=== PATIENT | female | born 1980 | race Caucasian/White ===

== ENCOUNTER → 2017-02-07 | Day surgery (SDC) | payer OTHER ==
[~2017-02-07] VITALS: Ht 170.2 cm; Wt 143.5 kg
[~2017-02-07] MED LIST: ACETAMINOPHEN325 MG PO; ASPIRIN325 M1 PO; GLUCOTROL10 MG PO; HYDROCODONE-APA1 TAB PO; JANUMET XR 1001 EACH PO; LIPITOR20 MG PO; LOPRESSOR25 MG PO; NITROQUIK SL0.4 MG SL; SYNTHROID125 MCG PO
[2017-02-07 12:48] LABS: CREATININE 0.6 mg/dL (0.5-1.0); POTASSIUM 4.1 mmol/L (3.5-5.1)
== END | disposition home or self-care (01) ==
LOC: FAS 11:15
PROVIDERS: Anesthesiology
DX: G56.02 Carpal tunnel syndrome, left upper limb (principal); I10 Essential (primary) hypertension; J45.909 Unspecified asthma, uncomplicated; E03.9 Hypothyroidism, unspecified; E78.00 Pure hypercholesterolemia, unspecified; E11.9 Type 2 diabetes mellitus without complications; F32.9 Major depressive disorder, single episode, unspecified; F41.9 Anxiety disorder, unspecified; F43.10 Post-traumatic stress disorder, unspecified; F17.210 Nicotine dependence, cigarettes, uncomplicated; G47.30 Sleep apnea, unspecified; K21.9 Gastro-esophageal reflux disease without esophagitis; M79.7 Fibromyalgia; Z87.442 Personal history of urinary calculi; Z90.710 Acquired absence of both cervix and uterus; Z90.89 Acquired absence of other organs; Z90.81 Acquired absence of spleen; Z88.1 Allergy status to other antibiotic agents; Z91.09 Other allergy status, other than to drugs and biological substances; Z79.891 Long term (current) use of opiate analgesic; Z79.899 Other long term (current) drug therapy; Z98.890 Other specified postprocedural states
CPT/HCPCS: 36415; 80048; 84703; J1100; J1170; J2405; J2704; J3010

== ENCOUNTER 2021-03-26 07:46 | Emergency (ER) | payer OTHER ==
[~2021-03-26 07:46] MED LIST changes: +LISINOPRIL40 MG PO; +METOPROLOL TART50 M1 PO; +PROAIR HFA8.5 GM INH; +PROMETHAZINE-D118 ML PO; +PROTONIX 40MG T40 MG PO; +SAVELLA100 MG PO; +SINGULAIR10 MG PO; +VICTOZA SC; +VITAMIN B122500 MCG PO; +ZYRTEC10 MG PO
[2021-03-26 08:36] LABS: BASOPHIL 0.7 % (0-2); EOSINOPHIL 3.9 % (0-5); MCH 31.3 pg (25.0-31.0); MCHC 34.1 g/dL (32.0-36.0); MCV 91.7 fL (78.0-100.0); MONOCYTE 10.5 % (0-12); MPV 11.1 fL (6.0-9.5); NEUTROPHIL 47.6 % (41-80); NRBC 0; PLT 535 K/uL (150-400); RDW 13.4 % (11.5-14.0); WBC 16.7 K/uL (4.0-10.5)
[2021-03-26 08:47] LABS: INR 0.94 (0.9-1.2); PROTHROMBIN TIME 11.9 SECONDS (11.4-13.6); PTT 31.4 SECONDS (22.2-34.7)
[2021-03-26 08:52] LABS: ALBUMIN 3.7 g/dL (3.4-5.0); BILIRUBIN - TOTAL 0.5 mg/dL (0.2-1.0); BUN/CREAT RATIO (CALC) 12.9 RATIO; CREATININE 0.7 mg/dL (0.51-0.95); POTASSIUM 5.3 mmol/L (3.5-5.1); TOTAL PROTEIN 6.7 g/dL (6.4-8.2)
[2021-03-26 09:00] LABS: CKMB 1.1 ng/mL (0.0-3.6)
== END 2021-03-26 08:59 | disposition other institution (70) ==
LOC: FER 07:46
PROVIDERS: Emergency Medicine
DX: I21.19 ST elevation (STEMI) myocardial infarction involving other coronary artery of inferior wall (principal); E11.9 Type 2 diabetes mellitus without complications; F17.210 Nicotine dependence, cigarettes, uncomplicated; Z88.0 Allergy status to penicillin; Z20.822 Contact with and (suspected) exposure to COVID-19
CPT/HCPCS: 36415; 71045; 80053; 82553; 84484; 85025; 85610; 85730; 93005; J1644; J2270; J2405; U0002

== ENCOUNTER 2021-04-26 03:36 | Emergency (ER) | payer OTHER ==
[2021-04-26 04:33] LABS: BASOPHIL 0.5 % (0-2); EOSINOPHIL 2.3 % (0-5); HCT 44.4 % (37.0-47.0); LYMPHOCYTE 21.7 % (15-48); MCH 30.5 pg (25.0-31.0); MCHC 33.8 g/dL (32.0-36.0); MCV 90.2 fL (78.0-100.0); MONOCYTE 6.1 % (0-12); MPV 11.4 fL (6.0-9.5); NEUTROPHIL 68.8 % (41-80); NRBC 0; PLT 575 K/uL (150-400); RBC 4.92 M/uL (4.20-5.40); RDW 13.5 % (11.5-14.0)
[2021-04-26 04:42] LABS: BILIRUBIN - TOTAL 0.3 mg/dL (0.2-1.0); CREATININE 0.7 mg/dL (0.51-0.95); GLOBULIN (CALCULATION) 3.5 g/dL; POTASSIUM 4.2 mmol/L (3.5-5.1); TOTAL PROTEIN 7.5 g/dL (6.4-8.2)
[2021-04-26 05:59] LABS: BILIRUBIN NEGATIVE (NEGATIVE); BLOOD NEGATIVE Ery/uL (NEGATIVE); CLARITY CLEAR (CLEAR); COLOR YELLOW (YELLOW); GLUCOSE (U) 3+ mg/dL (NORMAL); LEUKOCYTES NEGATIVE Leu/uL (NEGATIVE); NITRITE NEGATIVE (NEGATIVE); PROTEIN NEGATIVE (NEGATIVE); UROBILINOGEN 0.2 mg/dL (0.2-1.0); pH 5.5 (5.0-9.0)
== END 2021-04-26 06:24 | disposition home or self-care (01) ==
LOC: FER 03:36
PROVIDERS: Emergency Medicine
DX: F41.9 Anxiety disorder, unspecified (principal); I10 Essential (primary) hypertension; I25.10 Atherosclerotic heart disease of native coronary artery without angina pectoris; Z88.0 Allergy status to penicillin; Z91.048 Other nonmedicinal substance allergy status; Z79.899 Other long term (current) drug therapy
CPT/HCPCS: 36415; 71045; 80053; 81003; 84484; 85025; 93005; J2060; J2405; J7030